=== PATIENT | female | born 1985 | race Asian ===

== ENCOUNTER 2023-08-08 03:03 | Emergency (ER) | payer OTHER ==
[~2023-08-08] VITALS: Ht 162.6 cm; Wt 54.6 kg
[2023-08-08 03:05] VITALS: BP 149/102; PULSE 77; RESP 17; TEMP 98.3; O2SAT 98
[2023-08-08] MEDS ORDERED: IBUP-2213 PO (04:57)
[2023-08-08] MEDS ORDERED: CYCL-711 PO (04:57)
[2023-08-08] MEDS ORDERED: ONDA4SOL8 PO (04:57)
[2023-08-08] MEDS ORDERED: CYCLOBENZAPRINE 10 MG TAB PO ONE (05:00)
[2023-08-08] MEDS ORDERED: IBUPROFEN 600 MG TAB PO ONE (05:00)
[2023-08-08] MEDS ORDERED: ONDANSETRON 4 MG ODT PO ONE (05:05)
[2023-08-08 06:15] VITALS: BP 149/102; PULSE 77; RESP 17; TEMP 98.3; O2SAT 98
== END 2023-08-08 06:15 | disposition home or self-care (01) ==
LOC: MED 03:03
DX: R11.10 Vomiting, unspecified (principal); I10 Essential (primary) hypertension; Z79.899 Other long term (current) drug therapy
CPT/HCPCS: 93005; 99283